=== PATIENT | male | born 1940 | race Caucasian/White ===

== ENCOUNTER 2023-02-28 11:29 | Observation (INO) | payer MEDICARE, OTHER ==
[~2023-02-28] VITALS: Ht 162.6 cm; Wt 73.3 kg
[2023-02-28] VITALS (13 sets, daily range): BP systolic 102–153; BP diastolic 65–94
[~2023-02-28 11:29] MED LIST: 1/2 NS 250ml250 ML; ACET500 PO; ALBIPROI INH; ASPI81CH PO; BECLOI16.8; CHONDROITIN PO; FAMO20 PO; FLUT.05NI; GLUCOSAMINE PO; HYDHCL25 PO; HYDMOR2 PO; LISI5 PO; Lopressor 50 mg50 MG PO; NAPR220 PO; NITR.4SL SL; PRED20 PO; RANI150 PO; SIMV40 PO
[2023-02-28 11:53] LABS: BASOPHILS PERCENT AUTO 1 % (0-2); EOSINOPHILS ABSOLUTE AUTO 0.17 K/mm3 (0.00-0.68); EOSINOPHILS PERCENT AUTO 2 % (0-6); Hematocrit 50.1 % (37.0-53.0); Hemoglobin 16.1 g/dL (13.5-17.5); IMMATURE GRAN ABSOLUTE AUTO 0.08 K/mm3 (0.00-0.10); IMMATURE GRAN PERCENT AUTO 1 % (0-1); LYMPHOCYTES ABSOLUTE AUTO 0.95 K/mm3 (0.84-5.20); LYMPHOCYTES PERCENT AUTO 11 % (21-46); MONOCYTES ABSOLUTE AUTO 1.33 K/mm3 (0.16-1.47); MONOCYTES PERCENT AUTO 15 % (4-13); Mean Corpuscular HGB 29.7 pg (26.0-34.0); Mean Corpuscular HGB Conc 32.1 g/dL (31.5-36.5); Mean Corpuscular Volume 92 fL (80-100); Mean Platelet Volume 10.5 fL (9.1-12.4); NEUTROPHILS ABSOLUTE AUTO 6.44 K/mm3 (1.96-9.15); NEUTROPHILS PERCENT AUTO 71 % (41-73); Platelet Count 412 K/mm3 (150-400); RDW Coefficient Variation 14.3 % (11.7-14.2); RDW Standard Deviation 48.4 fL (35.1-46.3); Red Blood Cell Count 5.43 M/mm3 (4.30-5.90); White Blood Cell Count 9.07 K/mm3 (4.00-11.30)
[2023-02-28 12:16] LABS: Albumin, Blood 3.6 g/dL (3.4-5.0); Albumin/Globulin Ratio 1.1 (0.8-1.8); Calcium, Blood 9.8 mg/dL (8.5-10.1); Creatinine, Blood 1.65 mg/dL (0.60-1.20); Globulin, Blood 3.3 g/dL (2.2-4.0); Potassium, Blood 5.6 mmol/L (3.5-5.5); Total Protein, Blood 6.9 g/dL (6.4-8.2)
[2023-02-28 12:33] LABS: International Normalized Ratio 1.08; Prothrombin Time Results 11.3 Sec (9.7-11.5)
[2023-02-28] MEDS ORDERED: ALBU8HFA2 INH (13:39)
[2023-02-28] MEDS ORDERED: LOKELMA10 GM PO (13:45)
[2023-02-28] MEDS ORDERED: FLUT1DIS5 INH (13:47)
[2023-02-28] MEDS ORDERED: IPRATROPIUM BRO30 ML (13:47)
[2023-02-28] MEDS ORDERED: FAMO40 PO (13:49)
[2023-02-28] MEDS ORDERED: TIOT18 INH (13:49)
[2023-02-28] MEDS ORDERED: Vitamin D1000 UNI1 PO (13:54)
[2023-02-28 17:39] LABS: Bun/Creatinine Ratio 17.7 (12.0-20.0); Calcium, Blood 9.6 mg/dL (8.5-10.1); Creatinine, Blood 1.75 mg/dL (0.60-1.20); Potassium, Blood 4.8 mmol/L (3.5-5.5)
--- NOTE | 2023-02-28 19:35 | NUR ---
END OF SHIFT: ONLY CHANGE FROM SHIFT ASSESSMENT IS PATIENT RECIEVED IMDUR 60 AND 5 NORVASC DUE TO HAVING INCREASED SOB. LUNGS CLEAR COA BASES. MILDY ELEVATED SYS PF 150 AND AFTER MEDICATIONS IS IN THE 100'S OVER 60-70'S TR IN PLACE 6 REMAING AT SHIFT CHANGE. PATIENT HAS BEEN ALERT AND ORIENTED ABLE TO MAKE NEEDS KNOWN PLEASANT, NO CONCERNS FROM THIS RN AT THIS TIME WILL CONITINUE TO MONITOR UNTIL SHIFT CHANGE. SOB SUBSIDED WITH DECREASED BLOOD PRESSURE.
[2023-03-01 00:14] VITALS: BP 123/72
[2023-03-01 04:35] VITALS: BP 102/74
--- NOTE | 2023-03-01 05:01 | NUR ---
SHIFT SUMMARY ASSUMED CARE OF PT AT 1900. PT IS A/OX4. HEART SOUNDS REGULAR, LUNG SOUNDS HAVE CRACKLES IN R UPPER LOBE. PT C/O SOB WITH ACTIVITY, WHICH IS ONE OF THE RESONS HE CAME. PT WAS INDEPNDNT WITH URINAL. PT ANGIO SITE WNL. PT STATES HARD TIME NOT USING R ARM. NO OTHER COMPLAINTS DURING THE NIGHT.
[2023-03-01 05:43] LABS: Bun/Creatinine Ratio 20.6 (12.0-20.0); Calcium, Blood 10.3 mg/dL (8.5-10.1); Creatinine, Blood 1.6 mg/dL (0.60-1.20); Potassium, Blood 4.4 mmol/L (3.5-5.5)
[2023-03-01 08:11] VITALS: BP 94/73
[2023-03-01 09:11] VITALS: BP 95/62
[2023-03-01 10:04] VITALS: BP 109/72
[2023-03-01] MEDS ORDERED: AMLO5 PO ×2 (11:18→11:22)
[2023-03-01] MEDS ORDERED: Isosorbide Mono30 MG PO (11:20)
--- NOTE | 2023-03-01 12:05 | NUR ---
Spiritual care visit conducted. Patient is sitting on a chair and in street clothes. Patient's family are bedside and request help in filling out an Advnce Directive for the patient and the spouse. I have Latanya Guadarrama the wellness program coordinator come into the and we assist in being witnesses for the ACP instrument. After the health care client services representative signs in our presence we both sign as witnesses. I then have a copy of the advance directives sent to medical records, one copy placed in the patient's chart and the orginal returned to the patient. I also hear the patient's medical history, and about the family dunamics and about the patient's service. I provide therapeutic listening and a calming presence as pateint is anxious to d/c.
--- NOTE | 2023-03-01 12:36 | NUR ---
DISCHARGE NOTE PT DISCHARGE HOME WITH PCP FOLLOW UP EARLY NEXT WEEK. PT AND FAMILY WERE GIVEN EDUCATION ON MED/ CHANGE IN MEDICATIONS. PT INSTRUCTED TO KEEP BP LOG AND PARAMETERS ON WHEN TO HOLD MEDS. VITALS STABLE AT DISCHARGE. IV WAS REMOVED. ALL BELONGINGS TAKE WITH THE PT. STAFF ESCORTED PT OUT.
== END 2023-03-01 12:04 | disposition home or self-care (01) ==
LOC: ER 11:29 → PCU 12:28 → ICUW 12:28 → ER 12:28 → PCU 12:28 → ICUW 12:29 → PCU 13:30 → ICUW 13:30 → PCU 14:30
PROVIDERS: Emergency Medicine; Internal Medicine; ADMIT Internal Medicine Cardiovascular Disease
DX: I25.110 Atherosclerotic heart disease of native coronary artery with unstable angina pectoris (principal); N18.30 Chronic kidney disease, stage 3 unspecified; E78.5 Hyperlipidemia, unspecified; I10 Essential (primary) hypertension; E87.5 Hyperkalemia; I12.9 Hypertensive chronic kidney disease with stage 1 through stage 4 chronic kidney disease, or unspecified chronic kidney disease; Z95.5 Presence of coronary angioplasty implant and graft; Z87.891 Personal history of nicotine dependence
CPT/HCPCS: 36415; 76937; 80048; 80053; 83880; 85025; 85610; 85730; 93005; 93010; 93454; 94640; 94664; 94760; 96372; 99152; 99153; 99285-25; A9270; C1769; C1887; C1894; G0378; J1644; J1650; J2250; J2270; J3010; J7030; J7050; Q9967